=== PATIENT | male | born 1965 | race Caucasian/White ===

== ENCOUNTER 2017-07-09 15:36 | Emergency (ER) | payer MEDICAID ==
[~2017-07-09] VITALS: Ht 170.2 cm; Wt 70.0 kg
[~2017-07-09 15:36] MED LIST: BACL20TA84 PO; BUPR150T6 PO; DIVA500T9 PO; ESCI20TA29 PO; GABA-338 PO; HYDR-565 PO; LIT300C PO; METH4TAB3 PO; METH500T PO
[2017-07-09] MEDS ORDERED: IBUP-1984 PO (16:23)
[2017-07-09 16:31] VITALS: BP 105/65
== END 2017-07-09 16:34 | disposition home or self-care (01) ==
LOC: ER 15:37
DX: S05.11XA Contusion of eyeball and orbital tissues, right eye, initial encounter (principal); G89.29 Other chronic pain; F12.10 Cannabis abuse, uncomplicated; F15.10 Other stimulant abuse, uncomplicated; Z98.890 Other specified postprocedural states; Z79.899 Other long term (current) drug therapy; Y04.0XXA Assault by unarmed brawl or fight, initial encounter; Y93.89 Activity, other specified; Y92.89 Other specified places as the place of occurrence of the external cause; Y99.8 Other external cause status
CPT/HCPCS: 70486; 99284

== ENCOUNTER 2017-11-16 17:06 | Emergency (ER) | payer MEDICAID ==
[~2017-11-16] VITALS: Ht 167.6 cm; Wt 59.7 kg
[2017-11-16 20:54] LABS: BASOPHILS % (AUTO) 0.4 % (0-1); EOSINOPHILS # (AUTO) 0.1 X10'3 (0-0.9); EOSINOPHILS % (AUTO) 1.4 % (0-6); HEMATOCRIT 42.2 % (42.0-52.0); HEMOGLOBIN 14.6 g/dl (14.0-17.9); LYMPHOCYTES # (AUTO) 2.2 X10'3 (1.1-4.8); LYMPHOCYTES % (AUTO) 25.9 % (21-51); MEAN CORPUSCULAR HEMOGLOBIN 30.7 PG (27.0-31.0); MEAN CORPUSCULAR HGB CONC 34.5 % (33.0-36.5); MEAN CORPUSCULAR VOLUME 89.2 FL (78-98); MEAN PLATELET VOLUME 7.4 FL (7.4-10.4); MONOCYTES # (AUTO) 0.9 X10'3 (0-0.9); MONOCYTES % (AUTO) 10.1 % (2-12); NEUTROPHILS # (AUTO) 5.3 X10'3 (1.8-7.7); NEUTROPHILS % (AUTO) 62.2 % (42-75); PLATELET COUNT 191 X10'3 (140-440); RED BLOOD COUNT 4.73 X10'6 (4.70-6.10); RED CELL DISTRIBUTION WIDTH 13.9 % (11.5-14.5); WHITE BLOOD COUNT 8.5 X10'3 (4.5-11.0)
[2017-11-16 21:11] LABS: ALANINE AMINOTRANSFERASE 14 U/L (12-78); ALBUMIN 3.8 G/DL (3.4-5.0); ALKALINE PHOSPHATASE 85 IU/L (46-116); ANION GAP 7 (8-16); ASPARTATE AMINO TRANSFERASE 18 U/L (10-37); BILIRUBIN,TOTAL 0.4 MG/DL (0.1-1.0); BLOOD UREA NITROGEN 14 MG/DL (7-18); CALCIUM 8.9 MG/DL (8.5-10.1); CHLORIDE 103 MMOL/L (99-107); CREATININE 1.08 MG/DL (0.60-1.10); GLUCOSE 81 MG/DL (70-104); POTASSIUM 3.9 MMOL/L (3.5-5.1); SODIUM 141 MMOL/L (135-145); TOTAL CARBON DIOXIDE 30.8 MMOL/L (24-32); TOTAL PROTEIN 7.7 G/DL (6.4-8.2); eGFR 72 ML/MIN
[2017-11-16] MEDS ORDERED: iohexol 300mg/ml 100ml inj. ONE (21:15)
[2017-11-16] MEDS ORDERED: CEPH500C2 PO (22:26)
[2017-11-16] MEDS ORDERED: BACDS PO (22:26)
[2017-11-16] MEDS ORDERED: HYDR-3965 PO (22:27)
[2017-11-16 22:38] VITALS: BP 133/81
== END 2017-11-16 22:39 | disposition home or self-care (01) ==
LOC: ER 17:06
DX: K61.1 Rectal abscess (principal); G89.29 Other chronic pain; F12.90 Cannabis use, unspecified, uncomplicated; F15.90 Other stimulant use, unspecified, uncomplicated; Z98.890 Other specified postprocedural states; Z79.899 Other long term (current) drug therapy
CPT/HCPCS: 36415; 72193; 80053; 85025; 99285; J7030; Q9967

== ENCOUNTER 2017-12-28 11:17 | Emergency (ER) | payer MEDICAID ==
[~2017-12-28] VITALS: Ht 167.6 cm; Wt 63.6 kg
[2017-12-28] MEDS ORDERED: sulfamethoxazole/trimethoprim DS (800/160mg) tablet PO ONE (12:45)
[2017-12-28] MEDS ORDERED: LIDOcaine 1% 30ml preserv. free vial IJ ONE (12:45)
[2017-12-28] MEDS ORDERED: HYDROcodone/acetaminophen 5mg/325mg tablet PO ONE (12:45)
[2017-12-28] MEDS ORDERED: BACDS PO (13:24)
[2017-12-28] MEDS ORDERED: TRIA15CR61 TOP (13:24)
[2017-12-28] MEDS ORDERED: HYDR-3965 PO (13:24)
[2017-12-28] MEDS ORDERED: IBUP-1985 PO (13:24)
[2017-12-28] MEDS ORDERED: PRED50TA PO (13:24)
[2017-12-28 13:44] VITALS: BP 128/91
== END 2017-12-28 13:47 | disposition home or self-care (01) ==
LOC: ER 11:18
DX: L02.215 Cutaneous abscess of perineum (principal); L23.7 Allergic contact dermatitis due to plants, except food; G89.29 Other chronic pain; Z98.890 Other specified postprocedural states; Z79.899 Other long term (current) drug therapy
CPT/HCPCS: 10060; 99283; J3490

== ENCOUNTER 2018-02-19 07:32 | Day surgery (SDC) | payer MEDICAID ==
[2018-02-18 15:02] LABS: CLARITY,URINE CLEAR (Clear); COLOR,URINE YELLOW (Yellow); GLUCOSE, URINE NEGATIVE (Neg); KETONES,URINE TRACE mg/dl (Neg); LEUKOCYTE ESTERASE ,URINE NEGATIVE (Neg); NITRITES, URINE NEGATIVE (Neg); OCCULT BLOOD,URINE NEGATIVE (Neg); PROTEIN,URINE NEGATIVE (Neg); UROBILINOGEN,URINE 0.2 E.U/dL (0.2-1.0)
[2018-02-18 15:04] LABS: BASOPHILS % (AUTO) 0.6 % (0-1); EOSINOPHILS # (AUTO) 0.3 X10'3 (0-0.9); LYMPHOCYTES % (AUTO) 25.4 % (21-51); MEAN CORPUSCULAR HEMOGLOBIN 30.1 PG (27.0-31.0); MEAN CORPUSCULAR HGB CONC 33.3 % (33.0-36.5); MEAN CORPUSCULAR VOLUME 90.4 FL (78-98); MEAN PLATELET VOLUME 7.2 FL (7.4-10.4); MONOCYTES # (AUTO) 0.6 X10'3 (0-0.9); MONOCYTES % (AUTO) 7.9 % (2-12); NEUTROPHILS # (AUTO) 4.8 X10'3 (1.8-7.7); NEUTROPHILS % (AUTO) 62.1 % (42-75); PRE OP HEMATOCRIT 45.9 % (42.0-52.0); PRE OP HEMOGLOBIN 15.3 g/dL (14.0-17.9); PRE OP PLATELET COUNT 263 X10'3 (140-440); RED BLOOD COUNT 5.08 X10'6 (4.70-6.10)
[2018-02-18 15:05] LABS: UA COLLECTION TYPE VOIDED
[2018-02-18 15:13] LABS: ALBUMIN 4.1 G/DL (3.4-5.0); ALKALINE PHOSPHATASE 88 IU/L (46-116); BLOOD UREA NITROGEN 16 MG/DL (7-18); BUN/CREATININE RATIO 15.2 (5.4-32.0); CHLORIDE 103 MMOL/L (99-107); CREATININE 1.05 MG/DL (0.60-1.10); PRE OP ALT 49 U/L (30-65); PRE OP ANION GAP 10 (8-16); PRE OP AST 23 U/L (10-37); PRE OP BILIRUB, TOTAL 0.4 MG/DL (0.0-1.0); PRE OP GLUCOSE 89 MG/DL (70-104); PRE OP POTASSIUM 4.3 MMOL/L (3.4-5.1); PRE OP SODIUM 142 MMOL/L (135-145); TOTAL CARBON DIOXIDE 28.9 MMOL/L (24-32); TOTAL PROTEIN 8.2 G/DL (6.4-8.2); eGFR 75 ML/MIN
[~2018-02-19] VITALS: Ht 170.2 cm; Wt 65.7 kg
[2018-02-19] VITALS (16 sets, daily range): BP systolic 106–135; BP diastolic 59–89
[~2018-02-19 07:32] MED LIST changes: +CLON0.2T PO; -DIVA500T9 PO; +DOCU250C4 PO; -HYDR-565 PO; +IBUP-1985 PO; -LIT300C PO; -METH4TAB3 PO; +famotidine 20mg tablet PO ONE; +ringers solution, lacted 1,000 ML IV SCH
[2018-02-19] MEDS ORDERED: LIDOcaine 1% (10mg/ml) 2ml vial ONE (08:02)
[2018-02-19] MEDS ORDERED: methylene blue (5mg/ml) 50mg/10ml ampul IV ONE ×2 (10:00→10:16)
[2018-02-19] MEDS ORDERED: ROPIVAcaine 0.5% (5mg/ml) 30ml vial ONE (10:00)
[2018-02-19] MEDS ORDERED: ondansetron/PF 4mg/2ml inj ONE (10:30)
[2018-02-19] MEDS ORDERED: sevoflurane 250ml liquid IH ONE (10:30)
[2018-02-19] MEDS ORDERED: fentaNYL/PF 50MCG/1 ML 2ML syringe ONE ×2 (10:34→11:01)
[2018-02-19] MEDS ORDERED: midazolam 2 mg/2 ml injection ONE (10:35)
[2018-02-19] MEDS ORDERED: propofol inj 20 ML IV ONE (10:36)
[2018-02-19] MEDS ORDERED: LIDOcaine 2% (20mg/ml) 5ml vial ONE (10:36)
[2018-02-19] MEDS ORDERED: dexamethasone sod phosphate 4mg/ml inj. ONE (10:45)
[2018-02-19] MEDS ORDERED: ePHEDrine 50MG/ML INJ. ONE (10:46)
[2018-02-19] MEDS ORDERED: epiNEPHrine 1 mg/ml inj ONE (11:01)
[2018-02-19] MEDS ORDERED: ringers solution, lacted 1,000 ML IV SCH (11:26)
[2018-02-19] MEDS ORDERED: ondansetron/PF 4mg/2ml inj IV PRN (11:30)
[2018-02-19] MEDS ORDERED: morphine 4 MG/ML inj SYRINge IV PRN ×2 (11:30)
[2018-02-19] MEDS ORDERED: proCHLORperazine 10 MG/2 ml inj IV PRN (11:30)
[2018-02-19] MEDS ORDERED: meperidine/PF 25mg/ml syringe ONE (11:30)
[2018-02-19] MEDS ORDERED: meperidine/PF 25mg/ml syringe IV PRN ×2 (11:30)
[2018-02-19] MEDS: meperidine/PF 25mg/ml syringe IV PRN ×3 (11:44→12:18)
[2018-02-19] MEDS ORDERED: acetaminophen 1,000mg/100ml IV 100 ML IV ONE (12:15)
[2018-02-19] MEDS ORDERED: HYDROcodone/acetaminophen 10/325mg tab PO ONE (12:50)
[2018-02-19] MEDS ORDERED: cefazolin/dext.iso 2gm/100 ML IV ONE (14:50)
[2018-02-22] MEDS ORDERED: HYDR-565 PO (10:32)
== END 2018-02-19 14:18 | disposition home or self-care (01) ==
LOC: PAS 07:32
PROVIDERS: ATTEND Surgery
DX: K64.1 Second degree hemorrhoids (principal); L83 Acanthosis nigricans; K60.1 Chronic anal fissure; L57.0 Actinic keratosis; K64.4 Residual hemorrhoidal skin tags; F32.9 Major depressive disorder, single episode, unspecified; F41.8 Other specified anxiety disorders; G89.29 Other chronic pain; Z79.891 Long term (current) use of opiate analgesic; Z79.1 Long term (current) use of non-steroidal anti-inflammatories (NSAID); Z72.89 Other problems related to lifestyle; Z79.899 Other long term (current) drug therapy; Z98.890 Other specified postprocedural states
CPT/HCPCS: 36415; 45330; 46200; 46946; 80053; 81003; 85025; 93005; A6224; A6449; J0131; J0171; J0690; J1100; J2001; J2175; J2250; J2405; J2704; J2795; J3010; J3490; J7120; A7000

== ENCOUNTER 2020-02-04 12:08 | Emergency (ER) | payer MEDICAID ==
[~2020-02-04] VITALS: Ht 170.2 cm; Wt 88.0 kg
[~2020-02-04 12:08] MED LIST changes: -DOCU250C4 PO; +DOCU250C96 PO; -famotidine 20mg tablet PO ONE; -ringers solution, lacted 1,000 ML IV SCH
[2020-02-04 12:42] VITALS: BP 146/87
[2020-02-04] MEDS ORDERED: HYDR-3965 PO (14:13)
[2020-02-04] MEDS ORDERED: CEPH500C5 PO (14:13)
[2020-02-04] MEDS ORDERED: SULF1TAB49 PO (14:13)
== END 2020-02-04 14:32 | disposition home or self-care (01) ==
LOC: ER 12:08
DX: L03.314 Cellulitis of groin (principal); G89.29 Other chronic pain; M79.7 Fibromyalgia; F41.9 Anxiety disorder, unspecified; F31.9 Bipolar disorder, unspecified; Z98.890 Other specified postprocedural states; Z79.899 Other long term (current) drug therapy
CPT/HCPCS: 99283

== ENCOUNTER 2021-04-05 16:11 | Emergency (ER) | payer MEDICAID ==
[~2021-04-05] VITALS: Ht 154.9 cm; Wt 74.5 kg
[~2021-04-05 16:11] MED LIST changes: +BUPR-317 PO; -BUPR150T6 PO
[2021-04-05 16:38] VITALS: BP 143/86
== END 2021-04-05 18:05 | disposition home or self-care (01) ==
LOC: ER 16:12
DX: R05.9 Cough, unspecified (principal); Z20.822 Contact with and (suspected) exposure to COVID-19; G89.29 Other chronic pain; M54.9 Dorsalgia, unspecified; F31.9 Bipolar disorder, unspecified
CPT/HCPCS: 87635; 99283; C9803

== ENCOUNTER 2021-12-08 16:34 | Emergency (ER) | payer MEDICAID ==
[~2021-12-08] VITALS: Ht 170.2 cm; Wt 82.3 kg
[2021-12-08 17:28] VITALS: BP 144/107
[2021-12-08] MEDS ORDERED: HYDROcodone/acetaminophen 10/325mg tab PO ONE (18:10)
[2021-12-08] MEDS ORDERED: ibuprofen tablet 400 MG TABLET PO ONE (18:10)
[2021-12-08] MEDS ORDERED: amoxicillin 250mg capsule PO ONE (18:10)
[2021-12-08] MEDS ORDERED: AMOX-101 PO (18:14)
[2021-12-08] MEDS ORDERED: IBUP-1986 PO (18:14)
== END 2021-12-08 18:32 | disposition home or self-care (01) ==
LOC: ER 16:34
DX: K04.7 Periapical abscess without sinus (principal); G89.29 Other chronic pain; M54.9 Dorsalgia, unspecified; F31.9 Bipolar disorder, unspecified; Z79.1 Long term (current) use of non-steroidal anti-inflammatories (NSAID); Z79.82 Long term (current) use of aspirin
CPT/HCPCS: 41800; 99284; J7030; A6449